=== PATIENT | female | born 1980 | race Caucasian/White ===

== ENCOUNTER 2019-11-19 13:42 | Emergency (ER) | payer OTHER ==
[2019-11-19 14:08] VITALS: BP 137/72; PULSE 79; RESP 20; TEMP 98.2
--- NOTE | 2019-11-19 14:22 | ED ---
Upper Extremity HPI - General Chief Complaint: Extremity Injury, Upper Stated Complaint: Fall/shoulder injury-[facility] Time Seen by Provider: 11/19/19 14:12 Source: patient Mode of arrival: ambulatory Limitations: no limitations - History of Present Illness Initial Comments: Patient is a 39-year-old female presenting to emergency Department with a chief complaint right shoulder pain. Patient reports she was cleaning the car when she slipped and fell on the right side of her body. Patient does report pain in the right shoulder. Patient reports limited range of motion with abduction above 90. Patient reports the pain is exacerbated with abduction and alleviated rest. Patient reports [id number] analgesics with minimal improvement. Patient applied ice compress. Patient denies any numbness or tingling. Denies head trauma. - Related Data Allergies Allergy/AdvReac Type Severity Reaction Status Date / Time No Known Allergies Allergy Verified 11/19/19 14:08 Review of Systems ROS Statement: Those systems with pertinent positive or pertinent negative responses have been documented in the HPI. ROS Other: All systems not noted in ROS Statement are negative. Past Medical History Past Medical History: No Reported History History of Any Multi-Drug Resistant Organisms: None Reported Past Surgical History: No Surgical Hx Reported Past Psychological History: Anxiety Smoking Status: Never smoker Past Alcohol Use History: Occasional Past Drug Use History: None Reported General Exam Limitations: no limitations General appearance: alert, in no apparent distress Head exam: Present: atraumatic, normocephalic, normal inspection Eye exam: Present: normal appearance, PERRL, EOMI Pupils: Present: normal accommodation ENT exam: Present: normal exam, normal oropharynx, mucous membranes moist Neck exam: Present: normal inspection, full ROM Respiratory exam: Present: normal lung sounds bilaterally Cardiovascular Exam: Present: regular rate, normal rhythm, normal heart sounds Extremities exam: Present: normal inspection, tenderness (Tenderness along the lateral aspect of the right shoulder.), normal capillary refill, other (+2 ulnar and radial pulses bilaterally.). Absent: full ROM (Limited range of motion with abduction above 90.) Back exam: Present: normal inspection, full ROM Neurological exam: Present: alert, oriented X3 Psychiatric exam: Present: normal affect, normal mood Skin exam: Present: warm, dry, intact, normal color Course Vital Signs 11/19/19 14:06 Temperature 98.2 F Pulse Rate 79 Respiratory 20 Rate Blood Pressure 137/72 O2 Sat by Pulse 98 Oximetry Medical Decision Making - Medical Decision Making Patient is 39-year-old female presenting to the emergency department with a chief complaint of right shoulder pain. Patient did fall on the right side of her body after she slipped on ice. No head trauma. On exam patient does have limited range of motion with abduction above 90. She does have some tenderness along the lateral aspect of the right shoulder. X-ray of the right shoulder and upper humerus is unremarkable. I suspect the patient's over a shoulder sprain. Sling was applied. Patient was to follow-up with aviation operations specialist. Patient given analgesia and 80. Strict return parameters were thoroughly discussed the patient is understanding and agreeable. Case discussed with physician. Disposition Clinical Impression: Sprain of shoulder, right, Right shoulder pain Disposition: HOME SELF-CARE Condition: Stable Instructions (If sedation given, give patient instructions): Shoulder Sprain (ED) Additional Instructions: Please follow up with aviation operations specialist. Alternate between Tylenol and Motrin for pain control. Please return to emergency department symptoms worsen. Is patient prescribed a controlled substance at d/c from ED?: No Referrals: Arsen Crane MD [Primary Care Provider] - 1-2 days Time of Disposition: 14:32
--- NOTE | 2019-11-19 14:27 | XR ---
EXAMINATION TYPE: XR shoulder complete RT DATE OF EXAM: 11/19/2019 CLINICAL HISTORY: Fall injury with pain. TECHNIQUE: Three views of the right shoulder are obtained. COMPARISON: None. FINDINGS: There is no acute fracture/dislocation evident in the right shoulder. The acromioclavicul ar and glenohumeral joint spaces appear within normal limits. The visualized ribs are intact and unr emarkable. Overlying bra strap and other external devices makes evaluation slightly suboptimal IMPRESSION: There is no acute fracture or dislocation in the right shoulder.
[2019-11-19] MEDS ORDERED: KETOROLAC 30 MG/ML 1 ML VIAL IM STA (14:29)
== END 2019-11-19 14:55 | disposition home or self-care (01) ==
LOC: EC 13:42
DX: S43.401A Unspecified sprain of right shoulder joint, initial encounter (principal); W00.9XXA Unspecified fall due to ice and snow, initial encounter; Y92.69 Other specified industrial and construction area as the place of occurrence of the external cause; Y99.0 Civilian activity done for income or pay
CPT/HCPCS: 73030; 99283; 96372; J1885

== ENCOUNTER → 2025-01-25 | Outpatient (CLI) | payer BC ==
--- NOTE | 2025-01-25 18:03 | US ---
EXAMINATION TYPE: US axilla RT DATE OF EXAM: 01/25/2025 COMPARISON: NONE CLINICAL INDICATION: Female, 44 years old with history of R22.31 LOCALIZED SWELLING, MASS AND LUMP, R IGHT UP; Palpable lump right axilla x 3 months Technique: Grayscale imaging of the right axilla. Findings: Right axilla: 1.1 x 0.4 x 1.0 cm lymph node . Cortex measuring up to 1 mm which is within normal limi ts.. IMPRESSION: Normal morphologic lymph node in the right axilla [facility] Ariana Henderson, , 01/25/2025 6:01 PM
== END | disposition home or self-care (01) ==
LOC: RADUSWWP 16:32
PROVIDERS: ATTEND Family Medicine
DX: R22.31 Localized swelling, mass and lump, right upper limb (principal)

== ENCOUNTER → 2025-01-26 | Outpatient (CLI) | payer BC ==
[2025-01-27 07:52] LABS: Basophils # (A) 0.04 X 10*3/uL (0.00-0.10); Basophils % (A) 0.7 %; Eosinophils # (A) 0.18 X 10*3/uL (0.04-0.35); Eosinophils % (A) 3.3 %; HCT 42.9 % (37.2-46.3); HGB 13.7 g/dL (12.0-15.0); Lymphocytes # (A) 1.49 X 10*3/uL (0.90-5.00); Lymphocytes % (A) 27.7 %; MCH 31.9 pg (27.0-32.0); MCHC 31.9 g/dL (32.0-37.0); MCV 99.8 FL (80.0-97.0); Mean Platelet Volume 10.9 FL (9.5-12.2); Monocytes # (A) 0.38 X 10*3/uL (0.20-1.00); Monocytes % (A) 7.1 %; NRBC Per 100 WBC 0 X 10*3/uL (0.00-0.01); Neutrophils # (A) 3.27 X 10*3/uL (1.80-7.70); Neutrophils % (A) 60.8 %; Platelet Count 179 X 10*3/uL (140-440); RDW 11.4 % (11.5-14.5); WBC 5.38 X 10*3/uL (4.50-10.00)
[2025-01-27 08:44] LABS: ALT 9 U/L (8-44); AST 16 U/L (13-35); Albumin 4.3 g/dL (3.8-4.9); Albumin/Globulin Ratio 1.87 Ratio (1.60-3.17); Alkaline Phosphatase 41 U/L (41-126); BUN/Creat Ratio 14.57 Ratio (12.00-20.00); Blood Urea Nitrogen 10.2 mg/dL (9.0-27.0); Calcium 9.5 mg/dL (8.7-10.3); Carbon Dioxide 28.9 mmol/L (21.6-31.8); Chloride 102 mmol/L (96-109); Chol/HDL Ratio 2.41 Ratio; Globulin 2.3 g/dL (1.6-3.3); Glucose 94 mg/dL (70-110); LDL Cholesterol,Calculated 106.5 mg/dL (0.0-131.0); Potassium 4.2 mmol/L (3.5-5.5); Sodium 139 mmol/L (135-145); Total Bilirubin 0.8 mg/dL (0.3-1.2); Total Protein 6.6 g/dL (6.2-8.2); VLDL Calculation 12.28 mg/dL (5.00-40.00)
== END | disposition home or self-care (01) ==
LOC: LABWHC1 10:30
PROVIDERS: ATTEND Family Medicine
DX: Z00.00 Encounter for general adult medical examination without abnormal findings (principal)
CPT/HCPCS: 36415; 80053; 80061; 83036; 84443; 85025